=== PATIENT | male | born 1985 | race African-American/Black ===

== ENCOUNTER 2023-10-28 01:07 | Emergency (ER) | payer OTHER ==
[~2023-10-28] VITALS: Ht 188 cm; Wt 116.1 kg
[2023-10-28 03:27] VITALS: BP 141/79; TEMP 98; O2SAT 99
== END 2023-10-28 03:27 ==
LOC: ER 01:10
DX: S43.402A Unspecified sprain of left shoulder joint, initial encounter (principal); X58.XXXA Exposure to other specified factors, initial encounter; Y93.89 Activity, other specified; Y92.89 Other specified places as the place of occurrence of the external cause; Y99.8 Other external cause status
CPT/HCPCS: 73030-TC